=== PATIENT | male | born 1935 | race Caucasian/White ===

== ENCOUNTER 2018-07-28 10:20 | Day surgery (SDC) | payer MEDICARE, OTHER ==
[~2018-07-28] VITALS: Ht 170.2 cm; Wt 59.2 kg
[~2018-07-28 10:20] MED LIST: ALBU90OI INH; HYDSUL200 PO; Ipratropium Bro15 ML INH; MOME220I INH; MONT10T PO
== END 2018-07-28 12:40 | disposition home or self-care (01) ==
LOC: ORSCSDS 10:20
PROVIDERS: Ophthalmology
PROC: 08RK3JZ Replacement of Left Lens with Synthetic Substitute, Percutaneous Approach (ICD-10-PCS; principal; 2018-07-28 12:00)
DX: H25.12 Age-related nuclear cataract, left eye (principal); J44.9 Chronic obstructive pulmonary disease, unspecified; Z87.891 Personal history of nicotine dependence; Z79.899 Other long term (current) drug therapy
CPT/HCPCS: J2001; J2250; J3010; J7120; V2632

== ENCOUNTER 2024-10-21 08:05 | Emergency (ER) | payer OTHER, MEDICARE ==
[~2024-10-21] VITALS: Ht 170.2 cm; Wt 63.5 kg
[2024-10-21] MEDS ORDERED: Lidocaine/Tetracaine/Epinephr 3 ML GEL SYRINGE TOP ONE (08:45)
[2024-10-21 10:40] VITALS: BP 122/70
== END 2024-10-21 11:12 | disposition home or self-care (01) ==
LOC: ER 08:05
DX: S51.812A Laceration without foreign body of left forearm, initial encounter (principal); S51.811A Laceration without foreign body of right forearm, initial encounter; W01.0XXA Fall on same level from slipping, tripping and stumbling without subsequent striking against object, initial encounter; Z87.891 Personal history of nicotine dependence; Z79.899 Other long term (current) drug therapy
CPT/HCPCS: 36600; 82803; 90471; 90715; 99282-25

== ENCOUNTER 2024-10-23 16:50 | Day surgery (SDC) | payer MEDICARE, OTHER ==
[2024-10-23 16:48] LABS: pH Blood Arterial 7.42 (7.35-7.45)
== END 2024-10-23 23:00 | disposition home or self-care (01) ==
LOC: RCD 16:50
PROVIDERS: Physician Assistant
DX: Z79.51 Long term (current) use of inhaled steroids (principal); Z87.891 Personal history of nicotine dependence
CPT/HCPCS: 36600; 82803